=== PATIENT | female | born 1980 | race Caucasian/White ===

== ENCOUNTER 2018-06-05 16:05 | Emergency (ER) | payer OTHER ==
[~2018-06-05] VITALS: Ht 154.9 cm; Wt 74.5 kg
[~2018-06-05 16:05] MED LIST: PRENATAL VITS
[2018-06-05 18:10] LABS: INFLUENZA TYPE A NEGATIVE FOR TYPE A (NEGATIVE); INFLUENZA TYPE B NEGATIVE FOR TYPE B (NEGATIVE)
[2018-06-05 18:12] VITALS: BP 103/62
[2018-06-05] MEDS ORDERED: IBUPROFEN 600 MG TABLET PO ONE (19:00)
[2018-06-05] MEDS ORDERED: ALBUTEROL SULFATE HFA 90 MCG/PUFF 8 GM INHALER IH ONE (19:00)
[2018-06-05] MEDS ORDERED: ACETAMINOPHEN 325 MG TABLET PO ONE (19:00)
== END 2018-06-05 19:24 | disposition home or self-care (01) ==
LOC: EMS 16:07
DX: R05 Cough (principal); M79.10 Myalgia, unspecified site; R50.9 Fever, unspecified; Z90.49 Acquired absence of other specified parts of digestive tract
CPT/HCPCS: 87804; 94640; J3535

== ENCOUNTER 2018-06-11 09:34 | Emergency (ER) | payer OTHER ==
[~2018-06-11] VITALS: Ht 154.9 cm; Wt 76.4 kg
[2018-06-11 10:05] VITALS: BP 124/72
== END 2018-06-11 10:23 | disposition home or self-care (01) ==
LOC: EMS 09:39
DX: J06.9 Acute upper respiratory infection, unspecified (principal)

== ENCOUNTER 2019-11-13 16:02 | Emergency (ER) | payer OTHER ==
[~2019-11-13] VITALS: Ht 157.5 cm; Wt 55.5 kg
[2019-11-13] MEDS ORDERED: IBUPROFEN 600 MG TABLET PO ONE (16:45)
[2019-11-13 18:34] VITALS: BP 138/80
== END 2019-11-13 18:37 | disposition home or self-care (01) ==
LOC: EMS 16:02
DX: S46.912A Strain of unspecified muscle, fascia and tendon at shoulder and upper arm level, left arm, initial encounter (principal); Z90.89 Acquired absence of other organs; V49.9XXA Car occupant (driver) (passenger) injured in unspecified traffic accident, initial encounter; Y93.89 Activity, other specified; Y92.89 Other specified places as the place of occurrence of the external cause; Y99.8 Other external cause status